=== PATIENT | female | born 1995 | race Caucasian/White ===

== ENCOUNTER 2019-02-04 12:11 | Emergency (ER) | payer OTHER, BC, MEDICAID ==
[2019-02-04 12:57] VITALS: BP 119/78
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
== END 2019-02-04 12:30 | disposition home or self-care (01) ==
LOC: VM.ED 12:11
DX: O9A.219 Injury, poisoning and certain other consequences of external causes complicating pregnancy, unspecified trimester (principal); S80.02XA Contusion of left knee, initial encounter; S80.01XA Contusion of right knee, initial encounter; S05.12XA Contusion of eyeball and orbital tissues, left eye, initial encounter; Z79.899 Other long term (current) drug therapy; Z88.8 Allergy status to other drugs, medicaments and biological substances; V89.2XXA Person injured in unspecified motor-vehicle accident, traffic, initial encounter
CPT/HCPCS: 99283

== ENCOUNTER 2019-11-23 02:00 | Emergency (ER) | payer BC, OTHER ==
[2019-11-23 02:26] VITALS: BP 129/86; PULSE 120
[2019-11-23] MEDS ORDERED: Ibuprofen 200 MG Tab PO STA (02:39)
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
--- NOTE | 2019-11-23 08:11 | CR ---
[id number] RAD/RAD Foot Right 3V Min EXAM: RAD Foot Right 3V Min CLINICAL DATA: TRAUMA COMPARISON: NO PREVIOUS SIMILAR EXAM IS AVAILABLE. FINDINGS: There appears to be a nondisplaced fracture of the navicular Consider correlation with opposite foot and CAT scan of the right foot. IMPRESSION: APPEARANCE OF NONDISPLACED FRACTURE OF THE MEDIAL NAVICULAR Morris Oliveira MD 11/23/19 [id number] Thank you for allowing us to participate in the care of your patient.
== END 2019-11-23 03:15 | disposition home or self-care (01) ==
LOC: VM.ED 02:00
DX: S93.601A Unspecified sprain of right foot, initial encounter (principal); Z91.018 Allergy to other foods; V00.138A Other skateboard accident, initial encounter; Y93.51 Activity, roller skating (inline) and skateboarding
CPT/HCPCS: 73630; 99283; A9270

== ENCOUNTER 2021-10-14 10:04 | Emergency (ER) | payer OTHER, BC, MEDICAID ==
[2021-10-14 13:19] VITALS: BP 130/69; PULSE 96
== END 2021-10-14 11:45 | disposition home or self-care (01) ==
LOC: VM.ED 10:04
DX: S50.01XA Contusion of right elbow, initial encounter (principal); Z88.8 Allergy status to other drugs, medicaments and biological substances; W01.0XXA Fall on same level from slipping, tripping and stumbling without subsequent striking against object, initial encounter
CPT/HCPCS: 73070-RT; 99283; 99283-25

== ENCOUNTER 2022-12-24 16:15 | Emergency (ER) | payer BC, MEDICAID ==
[2022-12-25 07:53] VITALS: BP 142/80; PULSE 96
== END 2022-12-24 17:20 | disposition home or self-care (01) ==
LOC: VM.ED 16:15
DX: S60.221A Contusion of right hand, initial encounter (principal); Z91.048 Other nonmedicinal substance allergy status; W23.0XXA Caught, crushed, jammed, or pinched between moving objects, initial encounter
CPT/HCPCS: 73130-RT; 99283

== ENCOUNTER 2023-02-08 08:52 | Emergency (ER) | payer BC, MEDICAID ==
[2023-02-08 09:09] VITALS: BP 147/96; PULSE 92
[2023-02-08] MEDS: Ketorolac 30 MG/ML SDV IM ONE (09:30)
[2023-02-08] MEDS: Take Home: Ketorolac 10 MG Tab, 4 Tab Pack PO ONE (10:11)
[2023-02-08] MEDS: Take Home: predniSONE 20 MG, 2 Tab Pack PO ONE (10:11)
== END 2023-02-08 10:14 | disposition home or self-care (01) ==
LOC: VM.ED 08:52
DX: S46.911A Strain of unspecified muscle, fascia and tendon at shoulder and upper arm level, right arm, initial encounter (principal); F17.210 Nicotine dependence, cigarettes, uncomplicated; Z88.8 Allergy status to other drugs, medicaments and biological substances; X58.XXXA Exposure to other specified factors, initial encounter
CPT/HCPCS: 73030; 96372; 99283; A9270; J1885; J7512

== ENCOUNTER 2025-05-19 14:55 | Emergency (ER) | payer BC, MEDICAID, OTHER ==
[2025-05-19 15:24] VITALS: BP 135/98; PULSE 113
== END 2025-05-19 15:23 | disposition home or self-care (01) ==
LOC: VM.ED 14:55
DX: S81.011A Laceration without foreign body, right knee, initial encounter (principal); Z88.8 Allergy status to other drugs, medicaments and biological substances; W25.XXXA Contact with sharp glass, initial encounter
CPT/HCPCS: 12001; 99282